=== PATIENT | male | born 1975 | race Hispanic/Latino ===

== ENCOUNTER 2018-08-17 08:37 | Day surgery (SDC) | payer OTHER ==
[2018-08-14 14:51] VITALS: BP 139/75
[2018-08-14 14:52] LABS: BASOPHILS % (AUTO) 0.9 % (0.0-5.0); EOSINOPHILS % (AUTO) 2.2 % (0.0-8.0); HEMATOCRIT 45.3 % (36-48); LYMPHOCYTES % (AUTO) 30.3 % (21.0-51.0); MEAN CORPUSCULAR HGB CONC 35.4 g/dL (32.0-36.0); MEAN CORPUSCULAR VOLUME 87.5 fL (79-99); MONOCYTES % (AUTO) 8.1 % (3.0-13.0); NEUTROPHILS % (AUTO) 58.5 % (40.0-77.0); NUCLEATED RED BLOOD CELLS 0.1 % (0.0-0.19); PLATELET COUNT (AUTO) 184 K/uL (130-400); RED BLOOD CELL COUNT(AUTO) 5.17 MIL/uL (4.00-5.50); RED CELL DISTRIBUTION WIDTH 13.1 % (11.0-15.5); WHITE BLOOD COUNT (AUTO) 6.9 K/uL (4.8-10.8)
--- NOTE | 2018-08-14 14:58 | NUR ---
ekg abnormal ekg reported to Dr. Howard. awaiting for further orders. message left on his cell phone
[2018-08-14 15:02] LABS: CREATININE 0.9 mg/dL (0.5-1.5); POTASSIUM 4.3 mmol/L (3.5-5.1)
[2018-08-14 15:05] LABS: INR 0.91 (0.85-1.15); PARTIAL THROMBOPLASTIN TIME 26.4 SEC (26.3-35.5); PROTHROMBIN TIME 9.6 SEC (9.6-11.6)
[~2018-08-17] VITALS: Ht 185.4 cm; Wt 120.5 kg
[2018-08-17] VITALS (20 sets, daily range): BP systolic 110–142; BP diastolic 63–87
[~2018-08-17 08:37] MED LIST: CEFAZOLIN SODIUM 1 GM VIAL IVP SCH; INSU100I26 SQ; METF-446 PO
[2018-08-17] MEDS ORDERED: SODIUM CHLORIDE 0.9% 1000ML 1,000 ML IV ONE (09:16)
--- NOTE | 2018-08-17 09:55 | NUR ---
REPORTED GLUCOSE OF [address] GREENBERG, ANESTHESIA AND DR. ELLER. NO NEW ORDERS GIVEN.
[2018-08-17] MEDS ORDERED: PROPOFOL 10 MG/ML 20ML VIAL IV ONE (10:10)
[2018-08-17] MEDS ORDERED: FENTANYL CITRATE PF 50 MCG/1 ML 2ML VIAL ONE (10:10)
[2018-08-17] MEDS ORDERED: LIDOCAINE HCL MPF 1% 5ML VIAL ONE (10:10)
[2018-08-17] MEDS ORDERED: BUPIVACAINE/PF 0.25% 30ML VIAL IJ ONE (10:13)
[2018-08-17] MEDS ORDERED: BACITRACIN 28.4 GM OINT TP ONE (10:13)
[2018-08-17] MEDS ORDERED: GABA-529 PO (10:21)
[2018-08-17] MEDS ORDERED: FISH1CAP50 PO (10:21)
[2018-08-17] MEDS ORDERED: ONDANSETRON HCL 4 MG/2 ML VIAL ONE (11:21)
[2018-08-17] MEDS ORDERED: METOCLOPRAMIDE 10 MG/2 ML VIAL ONE (11:21)
[2018-08-17] MEDS ORDERED: TRAMADOL HCL 50 MG TABLET ONE (12:53)
--- NOTE | 2018-08-17 13:45 | NUR ---
PT DISCHARGED HOME, TOLERATING FLUIDS WELL. PT DENIES NAUSEA OR DIZZINESS. PT REPORTS THAT HEADACHE HAS SUBSIDED. DRESSING TO PENIS REMAINS DRY, CLEAN, INTACT, WITHOUT BLEEDING. DISCHARGE INSTRUCTIONS GIVEN BY JORDYN YOUSIF. PRESCRIPTION FOR ANTIBIOTIC OINTMENT/PAIN MEDICATION GIVEN TO SPOUSE. PT AND SPOUSE REPORT NO FURTHER QUESTIONS AT THIS TIME.
[2018-08-17] MEDS ORDERED: TRAMADOL HCL 50 MG TABLET PO ONE (14:30)
== END 2018-08-17 13:45 | disposition home or self-care (01) ==
LOC: DAH 08:37
PROVIDERS: ATTEND Urology
DX: N47.1 Phimosis (principal); E11.9 Type 2 diabetes mellitus without complications; Z88.0 Allergy status to penicillin; N52.9 Male erectile dysfunction, unspecified; E78.5 Hyperlipidemia, unspecified; K76.0 Fatty (change of) liver, not elsewhere classified; Z98.890 Other specified postprocedural states; Z79.899 Other long term (current) drug therapy
CPT/HCPCS: 36415; 54161; 80048; 82948 ×2; 85025; 85610; 85730; 93005; A4218; A4600; A4606; J0690; J2405; J2704; J2765; J3010; J3490 ×2; J7030